=== PATIENT | female | born 1985 | race Asian ===

== ENCOUNTER 2020-01-12 14:02 | Emergency (ER) | payer MEDICAID, OTHER ==
[~2020-01-12] VITALS: Ht 157.5 cm; Wt 63.0 kg
[2020-01-12 14:53] VITALS: BP 111/73
--- NOTE | 2020-01-12 14:58 | NUR ---
PT HERE WITH C/O NECK/JAW SWELLING. PT STATES NO PAIN, HAPPENED ABOUT AN HOUR AGO WHILE EATING SANDWICH.
--- NOTE | 2020-01-12 16:05 | NUR ---
Patient/Caregiver given discharge instructions and they have confirmed that they understand the instructions. Patient ambulatory with steady gait.
== END 2020-01-12 16:06 | disposition home or self-care (01) ==
LOC: ED 16:00
DX: L04.0 Acute lymphadenitis of face, head and neck (principal)
CPT/HCPCS: 87081; 87880; 99283